=== PATIENT | female | born 1980 | race Caucasian/White ===

== ENCOUNTER 2018-05-24 05:55 | Day surgery (SDC) | payer OTHER ==
[2018-05-24] MEDS ORDERED: PERCOCET 5-3251 EACH PO (08:44)
[2018-05-24] MEDS ORDERED: LOTRISONE CREAM45 GM TOP (08:53)
== END 2018-05-24 12:10 | disposition home or self-care (01) ==
LOC: CIR.AMB 05:55
DX: Z30.2 Encounter for sterilization (principal)

== ENCOUNTER → 2022-10-24 | Outpatient (CLI) | payer OTHER ==
[~2022-10-24] MED LIST: LOTRISONE CREAM45 GM TOP; PERCOCET 5-3251 EACH PO
== END | disposition home or self-care (01) ==
LOC: SONOGRAMA 07:17
PROVIDERS: ATTEND Specialist
DX: N92.0 Excessive and frequent menstruation with regular cycle (principal); R13.10 Dysphagia, unspecified